=== PATIENT | female | born 1965 | race Caucasian/White ===

== ENCOUNTER 2017-10-22 13:24 | Day surgery (SDC) | payer OTHER ==
[2017-10-22] MEDS: LIDOCAINE 1%/EPI 30 ML INJ
[2017-10-22] MEDS: COCAINE 4% 4 ML TOP
[2017-10-22] MEDS: OXYMETAZOLINE 0.05% 15 ML NAS SPRAY NASAL
[2017-10-22] MEDS ORDERED: BACITRACIN/POLYMYXIN 28.35 GM OINT TOP (16:06)
[2017-10-22] MEDS ORDERED: FENTAnyl 50 MCG/ML VIAL (16:12)
[2017-10-22] MEDS ORDERED: MIDAZOLAM 1 MG/ML 2 ML INJ (16:12)
[2017-10-22] MEDS ORDERED: DEXAMETHASONE 4 MG/ML 1 ML INJ (16:42)
[2017-10-22] MEDS ORDERED: OXYMETAZOLINE 0.05% 15 ML NAS SPRAY NASAL (16:45)
[2017-10-22] MEDS ORDERED: NEOSTIGMINE 3 MG/3 ML SYRINGE (17:09)
[2017-10-22] MEDS ORDERED: LIDOCAINE 2% (SDV) 5 ML INJ (17:09)
[2017-10-22] MEDS ORDERED: ROCURONIUM 50 MG INJ (17:09)
[2017-10-22] MEDS ORDERED: GLYCOPYRROLATE 0.4 MG INJ (17:09)
[2017-10-22] MEDS ORDERED: PROPOFOL 20 ML (17:09)
[2017-10-22] MEDS ORDERED: ONDANSETRON 4 MG INJ (17:11)
[2017-10-22] MEDS ORDERED: CEFAZOLIN 1 GM INJ (17:17)
[2017-10-22] MEDS ORDERED: HYDROCODONE/APAP (5/325) TAB PO (17:30)
[2017-10-22] MEDS: ONDANSETRON 4 MG INJ IV (17:50)
[2017-10-22] MEDS: MEPERIDINE 25 MG INJ IV (17:50)
[2017-10-22] MEDS ORDERED: HYDROmorphONE (0.2 MG/ML) 10ML SYG IV (18:00)
[2017-10-22] MEDS ORDERED: DIPHENHYDRAMINE 50 MG INJ IV (18:00)
[2017-10-22] MEDS ORDERED: FENTAnyl 50 MCG/ML VIAL IV (18:00)
[2017-10-22] MEDS: HYDROmorphONE (0.2 MG/ML) 10ML SYG IV ×2 (18:04→18:13)
== END 2017-10-22 19:04 | disposition home or self-care (01) ==
LOC: SDS 13:24
DX: J32.9 Chronic sinusitis, unspecified (principal); J33.9 Nasal polyp, unspecified
CPT/HCPCS: 31253; 88304